=== PATIENT | female | born 1990 | race Caucasian/White ===

== ENCOUNTER 2017-08-01 09:04 | Outpatient (CLI) | payer OTHER | END 2017-08-01 11:04 | disposition home or self-care (01) | LOC: ECT 09:04 | DX: F31.4 Bipolar disorder, current episode depressed, severe, without psychotic features (principal); F90.9 Attention-deficit hyperactivity disorder, unspecified type; Z91.5 Personal history of self-harm ==

== ENCOUNTER 2017-08-30 05:09 | Outpatient (RCR) | payer OTHER ==
[~2017-08-30] VITALS: Ht 147.3 cm; Wt 44.0 kg
[2017-08-30] MEDS ORDERED: SUMAtriptan 6mg/0.5ml Inj SUBQ ONE ×3 (05:10→08:34)
[2017-08-30] MEDS ORDERED: Midazolam 2mg/2ml Inj ONE ×2 (05:10)
[2017-08-30] MEDS ORDERED: Excedrin Migraine tab ONE ×3 (05:10→08:34)
[2017-08-30] MEDS ORDERED: Methohexital Sodium Syr 100mg/10ml IVP ONE ×3 (05:10→08:34)
[2017-08-30] MEDS ORDERED: Succinylcholine 20mg/ml 10ml vial ONE ×3 (05:10→08:34)
[2017-08-30] MEDS ORDERED: NS 500ML ONE ×3 (05:10→08:34)
[2017-08-30] MEDS ORDERED: Albuterol 90mcg Inhaler 8gm INH ONE (07:35)
[2017-08-30 08:00] VITALS: BP 105/59
[2017-08-30 08:13] VITALS: BP 105/59
[2017-08-30] MEDS ORDERED: Excedrin Migraine tab ORAL PRN (08:34)
[2017-08-30] MEDS ORDERED: Sodium Chloride 500ML 500 ML IV ONE (08:34)
[2017-08-30 08:35] VITALS: BP 115/65
[2017-08-30 08:40] VITALS: BP 111/65
[2017-08-30 08:45] VITALS: BP 99/51
[2017-08-30 08:50] VITALS: BP 99/48
[2017-09-02] MEDS ORDERED: Midazolam 2mg/2ml Inj ONE (07:00)
[2017-09-02] MEDS ORDERED: Methohexital Sodium Syr 100mg/10ml IVP ONE (07:00)
[2017-09-02] MEDS ORDERED: Excedrin Migraine tab ONE (07:00)
[2017-09-02] MEDS ORDERED: Succinylcholine 20mg/ml 10ml vial ONE (07:00)
[2017-09-02] MEDS ORDERED: SUMAtriptan 6mg/0.5ml Inj SUBQ ONE (07:00)
[2017-09-02] MEDS ORDERED: Ketorolac 60mg Inj ONE (07:00)
[2017-09-02] MEDS ORDERED: NS 500ML ONE (07:00)
[2017-09-02 07:59] VITALS: BP 109/67
[2017-09-02 08:18] VITALS: BP 112/57
[2017-09-02] MEDS ORDERED: Atropine Sulfate 0.4mg/ml inj IVP PRN (08:18)
[2017-09-02] MEDS ORDERED: Excedrin Migraine tab ORAL PRN (08:18)
[2017-09-02] MEDS ORDERED: Sodium Chloride 500ML 500 ML IV ONE (08:18)
[2017-09-02 08:23] VITALS: BP 111/55
[2017-09-02 08:28] VITALS: BP 108/53
[2017-09-02 08:33] VITALS: BP 109/53
[2017-09-04] MEDS ORDERED: Succinylcholine 20mg/ml 10ml vial ONE (07:00)
[2017-09-04] MEDS ORDERED: Excedrin Migraine tab ONE (07:00)
[2017-09-04] MEDS ORDERED: SUMAtriptan 6mg/0.5ml Inj SUBQ ONE (07:00)
[2017-09-04] MEDS ORDERED: Ketorolac 60mg Inj ONE (07:00)
[2017-09-04] MEDS ORDERED: Methohexital Sodium Syr 100mg/10ml IVP ONE (07:00)
[2017-09-04] MEDS ORDERED: Midazolam 2mg/2ml Inj ONE (07:00)
[2017-09-04] MEDS ORDERED: NS 500ML ONE (07:00)
[2017-09-04 07:55] VITALS: BP 105/71
[2017-09-04] MEDS ORDERED: Sodium Chloride 500ML 500 ML IV ONE (08:18)
[2017-09-04] MEDS ORDERED: Excedrin Migraine tab ORAL PRN (08:18)
[2017-09-04] MEDS ORDERED: Atropine Sulfate 0.4mg/ml inj IVP PRN (08:18)
[2017-09-04 08:20] VITALS: BP 102/55
[2017-09-04 08:25] VITALS: BP 101/54
[2017-09-04 08:30] VITALS: BP 103/56
[2017-09-04 08:35] VITALS: BP 101/55
[2017-09-06] MEDS ORDERED: Excedrin Migraine tab ONE (08:00)
[2017-09-06] MEDS ORDERED: NS 500ML ONE (08:00)
[2017-09-06] MEDS ORDERED: Methohexital Sodium Syr 100mg/10ml IVP ONE (08:00)
[2017-09-06] MEDS ORDERED: Ketorolac 60mg Inj ONE (08:00)
[2017-09-06] MEDS ORDERED: Midazolam 2mg/2ml Inj ONE (08:00)
[2017-09-06] MEDS ORDERED: Succinylcholine 20mg/ml 10ml vial ONE (08:00)
[2017-09-06] MEDS ORDERED: SUMAtriptan 6mg/0.5ml Inj SUBQ ONE (08:00)
[2017-09-06 08:49] VITALS: BP 109/70
[2017-09-06] MEDS ORDERED: Sodium Chloride 500ML 500 ML IV ONE (09:03)
[2017-09-06] MEDS ORDERED: Excedrin Migraine tab ORAL PRN (09:03)
[2017-09-06 09:05] VITALS: BP 98/53
[2017-09-06 09:10] VITALS: BP 105/58
[2017-09-06 09:15] VITALS: BP 100/56
[2017-09-06 09:20] VITALS: BP 103/56
[2017-09-09 10:23] VITALS: BP 101/61
[2017-09-09] MEDS ORDERED: Excedrin Migraine tab ORAL PRN (10:41)
[2017-09-09] MEDS ORDERED: Methohexital Sodium Syr 100mg/10ml IVP ONE (10:41)
[2017-09-09] MEDS ORDERED: Midazolam 2mg/2ml Inj ONE (10:41)
[2017-09-09] MEDS ORDERED: Sodium Chloride 500ML 500 ML IV ONE (10:41)
[2017-09-09] MEDS ORDERED: Succinylcholine 20mg/ml 10ml vial ONE (10:41)
[2017-09-09] MEDS ORDERED: Ketorolac 60mg Inj ONE (10:41)
[2017-09-09] MEDS ORDERED: SUMAtriptan 6mg/0.5ml Inj SUBQ ONE (10:41)
[2017-09-09] MEDS ORDERED: NS 500ML ONE (10:41)
[2017-09-09] MEDS ORDERED: Excedrin Migraine tab ONE (10:41)
[2017-09-09 10:45] VITALS: BP 109/59
[2017-09-09 10:50] VITALS: BP 108/54
[2017-09-09 10:55] VITALS: BP 104/53
[2017-09-09 11:00] VITALS: BP 106/50
[2017-09-09 11:05] VITALS: BP 101/51
[2017-09-11 07:51] VITALS: BP 107/71
[2017-09-11] MEDS ORDERED: Excedrin Migraine tab ORAL PRN (08:07)
[2017-09-11] MEDS ORDERED: Sodium Chloride 500ML 500 ML IV ONE (08:07)
[2017-09-11 08:10] VITALS: BP 128/68
[2017-09-11 08:15] VITALS: BP 137/68
[2017-09-11 08:21] VITALS: BP 99/44
[2017-09-11 08:25] VITALS: BP 110/60
[2017-09-13] MEDS ORDERED: Succinylcholine 20mg/ml 10ml vial ONE (08:00)
[2017-09-13] MEDS ORDERED: SUMAtriptan 6mg/0.5ml Inj SUBQ ONE (08:00)
[2017-09-13] MEDS ORDERED: Excedrin Migraine tab ONE (08:00)
[2017-09-13] MEDS ORDERED: NS 500ML ONE (08:00)
[2017-09-13] MEDS ORDERED: Midazolam 2mg/2ml Inj ONE (08:00)
[2017-09-13] MEDS ORDERED: Methohexital Sodium Syr 100mg/10ml IVP ONE (08:00)
[2017-09-13] MEDS ORDERED: Ketorolac 60mg Inj ONE (08:00)
[2017-09-13 08:30] VITALS: BP 107/72
[2017-09-13] MEDS ORDERED: Sodium Chloride 500ML 500 ML IV ONE (08:46)
[2017-09-13] MEDS ORDERED: Excedrin Migraine tab ORAL PRN (08:46)
[2017-09-13 08:50] VITALS: BP 97/41
[2017-09-13 08:55] VITALS: BP 99/42
[2017-09-13 09:00] VITALS: BP 90/42
[2017-09-13 09:05] VITALS: BP 100/46
[2017-09-16 10:22] VITALS: BP 98/65
[2017-09-16] MEDS ORDERED: Excedrin Migraine tab ORAL PRN (10:34)
[2017-09-16] MEDS ORDERED: Sodium Chloride 500ML 500 ML IV ONE (10:34)
[2017-09-16 10:35] VITALS: BP 89/47
[2017-09-16 10:40] VITALS: BP 110/63
[2017-09-16 10:45] VITALS: BP 101/42
[2017-09-16 10:50] VITALS: BP 102/51
[2017-09-18] MEDS ORDERED: Ketorolac 60mg Inj ONE (07:00)
[2017-09-18] MEDS ORDERED: NS 500ML ONE (07:00)
[2017-09-18] MEDS ORDERED: Midazolam 2mg/2ml Inj ONE (07:00)
[2017-09-18] MEDS ORDERED: Excedrin Migraine tab ONE (07:00)
[2017-09-18] MEDS ORDERED: Methohexital Sodium Syr 100mg/10ml IVP ONE (07:00)
[2017-09-18] MEDS ORDERED: Succinylcholine 20mg/ml 10ml vial ONE (07:00)
[2017-09-18] MEDS ORDERED: SUMAtriptan 6mg/0.5ml Inj SUBQ ONE (07:00)
[2017-09-18 09:47] VITALS: BP 98/63
[2017-09-18 10:06] VITALS: BP 110/45
[2017-09-18] MEDS ORDERED: Excedrin Migraine tab ORAL PRN (10:06)
[2017-09-18] MEDS ORDERED: Sodium Chloride 500ML 500 ML IV ONE (10:06)
[2017-09-18 10:11] VITALS: BP 100/50
[2017-09-18 10:16] VITALS: BP 93/40
[2017-09-18 10:21] VITALS: BP 95/40
[2017-09-23] MEDS ORDERED: Methohexital Sodium Syr 100mg/10ml IVP ONE (06:00)
[2017-09-23] MEDS ORDERED: SUMAtriptan 6mg/0.5ml Inj SUBQ ONE (06:00)
[2017-09-23] MEDS ORDERED: Excedrin Migraine tab ONE (06:00)
[2017-09-23] MEDS ORDERED: Succinylcholine 20mg/ml 10ml vial ONE (06:00)
[2017-09-23] MEDS ORDERED: Midazolam 2mg/2ml Inj ONE (06:00)
[2017-09-25] MEDS ORDERED: Midazolam 2mg/2ml Inj ONE (08:00)
[2017-09-25] MEDS ORDERED: Methohexital Sodium Syr 100mg/10ml IVP ONE (08:00)
[2017-09-25] MEDS ORDERED: Ketorolac 60mg Inj ONE (08:00)
[2017-09-25] MEDS ORDERED: SUMAtriptan 6mg/0.5ml Inj SUBQ ONE (08:00)
[2017-09-25] MEDS ORDERED: NS 500ML ONE (08:00)
[2017-09-25] MEDS ORDERED: Excedrin Migraine tab ONE (08:00)
[2017-09-25 09:26] VITALS: BP 106/64
[2017-09-25] MEDS ORDERED: Excedrin Migraine tab ORAL PRN (09:38)
[2017-09-25] MEDS ORDERED: Sodium Chloride 500ML 500 ML IV ONE (09:38)
[2017-09-25 09:40] VITALS: BP 106/44
[2017-09-25 09:45] VITALS: BP 98/52
[2017-09-25 09:50] VITALS: BP 98/47
[2017-09-25 09:55] VITALS: BP 109/65
== END 2017-09-25 | disposition home or self-care (01) ==
LOC: ECT 05:09
DX: F31.4 Bipolar disorder, current episode depressed, severe, without psychotic features (principal)
CPT/HCPCS: 90870; J0330; J2250; J3030; J3360; J7040

== ENCOUNTER 2017-09-30 06:07 | Outpatient (RCR) | payer OTHER ==
[~2017-09-30] VITALS: Ht 147.3 cm; Wt 44.0 kg
[2017-09-30] MEDS ORDERED: Succinylcholine 20mg/ml 10ml vial ONE (06:08)
[2017-09-30] MEDS ORDERED: Ketorolac 60mg Inj ONE (06:08)
[2017-09-30] MEDS ORDERED: Excedrin Migraine tab ONE (06:08)
[2017-09-30] MEDS ORDERED: NS 500ML ONE (06:08)
[2017-09-30] MEDS ORDERED: Midazolam 2mg/2ml Inj ONE (06:08)
[2017-09-30] MEDS ORDERED: Methohexital Sodium Syr 100mg/10ml IVP ONE (06:08)
[2017-09-30] MEDS ORDERED: SUMAtriptan 6mg/0.5ml Inj SUBQ ONE (06:08)
[2017-09-30 09:42] VITALS: BP 105/75
[2017-09-30] MEDS ORDERED: Sodium Chloride 500ML 500 ML IV ONE (10:03)
[2017-09-30] MEDS ORDERED: Excedrin Migraine tab ORAL PRN (10:03)
[2017-09-30 10:05] VITALS: BP 101/48
[2017-09-30 10:10] VITALS: BP 98/49
[2017-09-30 10:15] VITALS: BP 100/45
[2017-09-30 10:20] VITALS: BP 98/50
[2017-09-30 10:25] VITALS: BP 106/50
[2017-10-07] MEDS ORDERED: NS 500ML ONE (06:00)
[2017-10-07] MEDS ORDERED: SUMAtriptan 6mg/0.5ml Inj SUBQ ONE (06:00)
[2017-10-07] MEDS ORDERED: Excedrin Migraine tab ONE (06:00)
[2017-10-07] MEDS ORDERED: Methohexital Sodium Syr 100mg/10ml IVP ONE (06:00)
[2017-10-07] MEDS ORDERED: Succinylcholine 20mg/ml 10ml vial ONE (06:00)
[2017-10-07] MEDS ORDERED: Midazolam 2mg/2ml Inj ONE (06:00)
[2017-10-07] MEDS ORDERED: Ketorolac 60mg Inj ONE (06:00)
[2017-10-07 08:48] VITALS: BP 103/68
[2017-10-07] MEDS ORDERED: Sodium Chloride 500ML 500 ML IV ONE (09:07)
[2017-10-07] MEDS ORDERED: Excedrin Migraine tab ORAL PRN (09:07)
[2017-10-07 09:10] VITALS: BP 133/50
[2017-10-07 09:15] VITALS: BP 126/47
[2017-10-07 09:20] VITALS: BP 110/52
[2017-10-07 09:25] VITALS: BP 116/62
[2017-10-14] MEDS ORDERED: SUMAtriptan 6mg/0.5ml Inj SUBQ ONE (06:00)
[2017-10-14] MEDS ORDERED: Midazolam 2mg/2ml Inj ONE (06:00)
[2017-10-14] MEDS ORDERED: Succinylcholine 20mg/ml 10ml vial ONE (06:00)
[2017-10-14] MEDS ORDERED: Excedrin Migraine tab ONE (06:00)
[2017-10-14] MEDS ORDERED: Ketorolac 60mg Inj ONE (06:00)
[2017-10-14] MEDS ORDERED: Methohexital Sodium Syr 100mg/10ml IVP ONE (06:00)
[2017-10-14] MEDS ORDERED: NS 500ML ONE (06:00)
[2017-10-14 09:51] VITALS: BP 105/69
[2017-10-14] MEDS ORDERED: Excedrin Migraine tab ORAL PRN (10:07)
[2017-10-14] MEDS ORDERED: Sodium Chloride 500ML 500 ML IV ONE (10:07)
[2017-10-14 10:10] VITALS: BP 99/56
[2017-10-14 10:15] VITALS: BP 98/55
[2017-10-14 10:20] VITALS: BP 98/55
[2017-10-14 10:25] VITALS: BP 101/61
[2017-10-23] MEDS ORDERED: Midazolam 2mg/2ml Inj ONE (08:00)
[2017-10-23] MEDS ORDERED: Methohexital Sodium Syr 100mg/10ml IVP ONE (08:00)
[2017-10-23] MEDS ORDERED: NS 500ML ONE (08:00)
[2017-10-23] MEDS ORDERED: Excedrin Migraine tab ONE (08:00)
[2017-10-23] MEDS ORDERED: SUMAtriptan 6mg/0.5ml Inj SUBQ ONE (08:00)
[2017-10-23] MEDS ORDERED: Succinylcholine 20mg/ml 10ml vial ONE (08:00)
[2017-10-23] MEDS ORDERED: Ketorolac 60mg Inj ONE (08:00)
[2017-10-23 09:34] VITALS: BP 104/71
[2017-10-23] MEDS ORDERED: Sodium Chloride 500ML 500 ML IV ONE (09:58)
[2017-10-23] MEDS ORDERED: Excedrin Migraine tab ORAL PRN (09:58)
[2017-10-23 10:00] VITALS: BP 101/51
[2017-10-23 10:05] VITALS: BP 101/41
[2017-10-23 10:10] VITALS: BP 99/43
[2017-10-23 10:15] VITALS: BP 100/47
== END 2017-10-23 | disposition home or self-care (01) ==
LOC: ECT 06:07
DX: F31.4 Bipolar disorder, current episode depressed, severe, without psychotic features (principal)
CPT/HCPCS: 90870; J0330; J2250; J3030; J7040

== ENCOUNTER 2017-11-11 07:28 | Outpatient (RCR) | payer OTHER ==
[~2017-11-11] VITALS: Ht 30.5 cm; Wt 0.5 kg
[2017-11-11] MEDS ORDERED: Succinylcholine 20mg/ml 10ml vial ONE (07:29)
[2017-11-11] MEDS ORDERED: Ketorolac 60mg Inj ONE (07:29)
[2017-11-11] MEDS ORDERED: Methohexital Sodium Syr 100mg/10ml IVP ONE (07:29)
[2017-11-11] MEDS ORDERED: NS 500ML ONE (07:29)
[2017-11-11] MEDS ORDERED: SUMAtriptan 6mg/0.5ml Inj SUBQ ONE (07:29)
[2017-11-11] MEDS ORDERED: Midazolam 2mg/2ml Inj ONE (07:29)
[2017-11-11] MEDS ORDERED: Excedrin Migraine tab ONE (07:29)
[2017-11-11 08:21] VITALS: BP 107/73
[2017-11-11] MEDS ORDERED: Sodium Chloride 500ML 500 ML IV ONE (08:36)
[2017-11-11] MEDS ORDERED: Excedrin Migraine tab ORAL PRN (08:36)
[2017-11-11 08:40] VITALS: BP 96/52
[2017-11-11 08:45] VITALS: BP 92/48
[2017-11-11 08:50] VITALS: BP 107/54
[2017-11-11 08:55] VITALS: BP 114/52
[2017-11-11 09:40] VITALS: BP 107/55
[2017-11-20] MEDS ORDERED: Ketorolac 60mg Inj ONE (08:00)
[2017-11-20] MEDS ORDERED: Succinylcholine 20mg/ml 10ml vial ONE (08:00)
[2017-11-20] MEDS ORDERED: Excedrin Migraine tab ONE (08:00)
[2017-11-20] MEDS ORDERED: NS 500ML ONE (08:00)
[2017-11-20] MEDS ORDERED: Midazolam 2mg/2ml Inj ONE (08:00)
[2017-11-20] MEDS ORDERED: SUMAtriptan 6mg/0.5ml Inj SUBQ ONE (08:00)
[2017-11-20] MEDS ORDERED: Methohexital Sodium Syr 100mg/10ml IVP ONE (08:00)
[2017-11-20 10:11] VITALS: BP 110/67
[2017-11-20 10:35] VITALS: BP 90/46
[2017-11-20] MEDS ORDERED: Excedrin Migraine tab ORAL PRN (10:35)
[2017-11-20] MEDS ORDERED: Sodium Chloride 500ML 500 ML IV ONE (10:35)
[2017-11-20 10:40] VITALS: BP 92/46
[2017-11-20 10:45] VITALS: BP 92/44
[2017-11-20 10:50] VITALS: BP 98/52
== END 2017-11-23 | disposition home or self-care (01) ==
LOC: ECT 07:28
DX: F31.4 Bipolar disorder, current episode depressed, severe, without psychotic features (principal)
CPT/HCPCS: 90870; J0330; J2250; J3030; J7040

== ENCOUNTER 2017-11-25 06:24 | Outpatient (RCR) | payer OTHER ==
[~2017-11-25] VITALS: Ht 147.3 cm; Wt 44.0 kg
[2017-11-25] MEDS ORDERED: Midazolam 2mg/2ml Inj ONE ×2 (06:25)
[2017-11-25] MEDS ORDERED: Ketorolac 60mg Inj ONE ×2 (06:25)
[2017-11-25] MEDS ORDERED: Succinylcholine 20mg/ml 10ml vial ONE ×2 (06:25)
[2017-11-25] MEDS ORDERED: Methohexital Sodium Syr 100mg/10ml IVP ONE ×2 (06:25)
[2017-11-25] MEDS ORDERED: NS 500ML ONE ×2 (06:25)
[2017-11-25] MEDS ORDERED: Excedrin Migraine tab ONE ×2 (06:25)
[2017-11-25] MEDS ORDERED: SUMAtriptan 6mg/0.5ml Inj SUBQ ONE ×2 (06:25)
[2017-11-25 08:29] VITALS: BP 114/77
[2017-11-25] MEDS ORDERED: Sodium Chloride 500ML 500 ML IV ONE (08:49)
[2017-11-25] MEDS ORDERED: Excedrin Migraine tab ORAL PRN (08:49)
[2017-11-25 08:50] VITALS: BP 111/57
[2017-11-25 08:55] VITALS: BP 107/50
[2017-11-25 09:00] VITALS: BP 104/54
[2017-11-25 09:05] VITALS: BP 108/46
[2017-11-29] MEDS ORDERED: Excedrin Migraine tab ONE (07:00)
[2017-11-29] MEDS ORDERED: Methohexital Sodium Syr 100mg/10ml IVP ONE (07:00)
[2017-11-29] MEDS ORDERED: NS 500ML ONE (07:00)
[2017-11-29] MEDS ORDERED: Midazolam 2mg/2ml Inj ONE (07:00)
[2017-11-29] MEDS ORDERED: Succinylcholine 20mg/ml 10ml vial ONE (07:00)
[2017-11-29] MEDS ORDERED: Ketorolac 60mg Inj ONE (07:00)
[2017-11-29] MEDS ORDERED: SUMAtriptan 6mg/0.5ml Inj SUBQ ONE (07:00)
[2017-11-29 08:21] VITALS: BP 108/75
[2017-11-29] MEDS ORDERED: Excedrin Migraine tab ORAL PRN (08:43)
[2017-11-29] MEDS ORDERED: Sodium Chloride 500ML 500 ML IV ONE (08:43)
[2017-11-29 08:45] VITALS: BP 108/46
[2017-11-29 08:50] VITALS: BP 102/46
[2017-11-29 08:55] VITALS: BP 108/61
[2017-11-29 09:00] VITALS: BP 103/51
[2017-12-02 09:39] VITALS: BP 109/71
[2017-12-02 10:00] VITALS: BP 100/46
[2017-12-02] MEDS ORDERED: Sodium Chloride 500ML 500 ML IV ONE (10:00)
[2017-12-02] MEDS ORDERED: Excedrin Migraine tab ORAL PRN (10:00)
[2017-12-02 10:05] VITALS: BP 95/42
[2017-12-02 10:10] VITALS: BP 104/51
[2017-12-02 10:15] VITALS: BP 113/53
[2017-12-06] MEDS ORDERED: SUMAtriptan 6mg/0.5ml Inj SUBQ ONE (07:00)
[2017-12-06] MEDS ORDERED: Methohexital Sodium Syr 100mg/10ml IVP ONE (07:00)
[2017-12-06] MEDS ORDERED: Ketorolac 60mg Inj ONE (07:00)
[2017-12-06] MEDS ORDERED: Succinylcholine 20mg/ml 10ml vial ONE (07:00)
[2017-12-06] MEDS ORDERED: Midazolam 2mg/2ml Inj ONE (07:00)
[2017-12-06] MEDS ORDERED: Excedrin Migraine tab ONE (07:00)
[2017-12-06] MEDS ORDERED: NS 500ML ONE (07:00)
[2017-12-06 08:01] VITALS: BP 114/75
[2017-12-06] MEDS ORDERED: Sodium Chloride 500ML 500 ML IV ONE (08:19)
[2017-12-06] MEDS ORDERED: Excedrin Migraine tab ORAL PRN (08:19)
[2017-12-06 08:20] VITALS: BP 113/62
[2017-12-06 08:25] VITALS: BP 108/54
[2017-12-06 08:30] VITALS: BP 105/52
[2017-12-06 08:35] VITALS: BP 111/63
[2017-12-13 08:06] VITALS: BP 107/73
[2017-12-13 08:28] VITALS: BP 104/54
[2017-12-13] MEDS ORDERED: Excedrin Migraine tab ORAL PRN (08:28)
[2017-12-13] MEDS ORDERED: Atropine Sulfate 0.4mg/ml inj IVP PRN (08:28)
[2017-12-13] MEDS ORDERED: Sodium Chloride 500ML 500 ML IV ONE (08:28)
[2017-12-13 08:33] VITALS: BP 105/58
[2017-12-13 08:38] VITALS: BP 106/59
[2017-12-13 08:43] VITALS: BP 109/51
[2017-12-16 07:37] VITALS: BP 102/67
[2017-12-16] MEDS ORDERED: Sodium Chloride 500ML 500 ML IV ONE (07:54)
[2017-12-16 07:55] VITALS: BP 111/61
[2017-12-16 08:00] VITALS: BP 108/60
[2017-12-16] MEDS ORDERED: SUMAtriptan 6mg/0.5ml Inj SUBQ ONE (08:00)
[2017-12-16] MEDS ORDERED: NS 500ML ONE (08:00)
[2017-12-16] MEDS ORDERED: Excedrin Migraine tab ONE (08:00)
[2017-12-16] MEDS ORDERED: Ketorolac 60mg Inj ONE (08:00)
[2017-12-16] MEDS ORDERED: Succinylcholine 20mg/ml 10ml vial ONE (08:00)
[2017-12-16] MEDS ORDERED: Methohexital Sodium Syr 100mg/10ml IVP ONE (08:00)
[2017-12-16] MEDS ORDERED: Midazolam 2mg/2ml Inj ONE (08:00)
[2017-12-16 08:05] VITALS: BP 114/66
[2017-12-16 08:10] VITALS: BP 109/65
[2017-12-16] MEDS ORDERED: Excedrin Migraine tab ORAL PRN (15:30)
[2017-12-18] MEDS ORDERED: Methohexital Sodium Syr 100mg/10ml IVP ONE (08:00)
[2017-12-18] MEDS ORDERED: SUMAtriptan 6mg/0.5ml Inj SUBQ ONE (08:00)
[2017-12-18] MEDS ORDERED: Excedrin Migraine tab ONE (08:00)
[2017-12-18] MEDS ORDERED: Succinylcholine 20mg/ml 10ml vial ONE (08:00)
[2017-12-18] MEDS ORDERED: NS 500ML ONE (08:00)
[2017-12-18] MEDS ORDERED: Ketorolac 60mg Inj ONE (08:00)
[2017-12-18] MEDS ORDERED: Midazolam 2mg/2ml Inj ONE (08:00)
[2017-12-18] MEDS ORDERED: Sodium Chloride 500ML 500 ML IV ONE (08:31)
[2017-12-18] MEDS ORDERED: Excedrin Migraine tab ORAL PRN (08:31)
[2017-12-18 08:35] VITALS: BP 106/45
[2017-12-18 08:40] VITALS: BP 101/45
[2017-12-18 08:45] VITALS: BP 97/45
[2017-12-18 08:50] VITALS: BP 105/39
[2017-12-18 08:55] VITALS: BP 102/50
[2017-12-20] MEDS ORDERED: Midazolam 2mg/2ml Inj ONE (07:00)
[2017-12-20] MEDS ORDERED: NS 500ML ONE (07:00)
[2017-12-20] MEDS ORDERED: Ketorolac 60mg Inj ONE (07:00)
[2017-12-20] MEDS ORDERED: Excedrin Migraine tab ONE (07:00)
[2017-12-20] MEDS ORDERED: SUMAtriptan 6mg/0.5ml Inj SUBQ ONE (07:00)
[2017-12-20] MEDS ORDERED: Methohexital Sodium Syr 100mg/10ml IVP ONE (07:00)
[2017-12-20] MEDS ORDERED: Succinylcholine 20mg/ml 10ml vial ONE (07:00)
[2017-12-20 08:20] VITALS: BP 109/70
[2017-12-20] MEDS ORDERED: Excedrin Migraine tab ORAL PRN (08:35)
[2017-12-20] MEDS ORDERED: Sodium Chloride 500ML 500 ML IV ONE (08:35)
[2017-12-20 08:40] VITALS: BP 109/70
[2017-12-20 08:45] VITALS: BP 123/66
[2017-12-20 08:50] VITALS: BP 116/64
[2017-12-20 08:55] VITALS: BP 105/51
== END 2017-12-23 | disposition home or self-care (01) ==
LOC: ECT 06:24
DX: F31.4 Bipolar disorder, current episode depressed, severe, without psychotic features (principal)
CPT/HCPCS: 90870; J0330; J2250; J3030; J7040

== ENCOUNTER 2017-12-25 09:27 | Outpatient (RCR) | payer OTHER ==
[~2017-12-25] VITALS: Ht 147.3 cm; Wt 44.0 kg
[2017-12-25] MEDS ORDERED: Ketorolac 60mg Inj ONE ×2 (09:28)
[2017-12-25] MEDS ORDERED: Methohexital Sodium Syr 100mg/10ml IVP ONE ×2 (09:28)
[2017-12-25] MEDS ORDERED: SUMAtriptan 6mg/0.5ml Inj SUBQ ONE ×2 (09:28)
[2017-12-25] MEDS ORDERED: Succinylcholine 20mg/ml 10ml vial ONE ×2 (09:28)
[2017-12-25] MEDS ORDERED: Excedrin Migraine tab ONE ×2 (09:28)
[2017-12-25] MEDS ORDERED: NS 500ML ONE ×2 (09:28)
[2017-12-25] MEDS ORDERED: Midazolam 2mg/2ml Inj ONE ×2 (09:28)
[2017-12-26] MEDS ORDERED: Excedrin Migraine tab ORAL PRN (08:30)
[2017-12-26] MEDS ORDERED: Sodium Chloride 500ML 500 ML IV ONE (08:30)
[2017-12-27] MEDS ORDERED: Succinylcholine 20mg/ml 10ml vial ONE (07:00)
[2017-12-27] MEDS ORDERED: NS 500ML ONE (07:00)
[2017-12-27] MEDS ORDERED: SUMAtriptan 6mg/0.5ml Inj SUBQ ONE (07:00)
[2017-12-27] MEDS ORDERED: Midazolam 2mg/2ml Inj ONE (07:00)
[2017-12-27] MEDS ORDERED: Ketorolac 60mg Inj ONE (07:00)
[2017-12-27] MEDS ORDERED: Excedrin Migraine tab ONE (07:00)
[2017-12-27] MEDS ORDERED: Methohexital Sodium Syr 100mg/10ml IVP ONE (07:00)
[2017-12-27 09:12] VITALS: BP 104/60
[2017-12-27] MEDS ORDERED: Excedrin Migraine tab ORAL PRN (09:29)
[2017-12-27] MEDS ORDERED: Sodium Chloride 500ML 500 ML IV ONE (09:29)
[2017-12-27 09:30] VITALS: BP 119/42
[2017-12-27 09:35] VITALS: BP 117/56
[2017-12-27 09:40] VITALS: BP 111/50
[2017-12-27 09:45] VITALS: BP 108/48
[2018-01-01 09:17] VITALS: BP 101/60
[2018-01-01] MEDS ORDERED: Excedrin Migraine tab ORAL PRN (09:36)
[2018-01-01] MEDS ORDERED: Sodium Chloride 500ML 500 ML IV ONE (09:36)
[2018-01-01 09:40] VITALS: BP 128/76
[2018-01-01 09:45] VITALS: BP 129/47
[2018-01-01 09:50] VITALS: BP 118/62
[2018-01-01 09:55] VITALS: BP 105/51
[2018-01-08] MEDS ORDERED: Ketorolac 60mg Inj ONE (07:00)
[2018-01-08] MEDS ORDERED: Excedrin Migraine tab ONE (07:00)
[2018-01-08] MEDS ORDERED: Midazolam 2mg/2ml Inj ONE (07:00)
[2018-01-08] MEDS ORDERED: Methohexital Sodium Syr 100mg/10ml IVP ONE (07:00)
[2018-01-08] MEDS ORDERED: SUMAtriptan 6mg/0.5ml Inj SUBQ ONE (07:00)
[2018-01-08] MEDS ORDERED: Succinylcholine 20mg/ml 10ml vial ONE (07:00)
[2018-01-08] MEDS ORDERED: NS 500ML ONE (07:00)
[2018-01-08 08:50] VITALS: BP 101/58
[2018-01-08] MEDS ORDERED: Sodium Chloride 500ML 500 ML IV ONE (09:13)
[2018-01-08] MEDS ORDERED: Atropine Sulfate 0.4mg/ml inj IVP PRN (09:13)
[2018-01-08 09:15] VITALS: BP 102/52
[2018-01-08 09:20] VITALS: BP 107/38
[2018-01-08 09:25] VITALS: BP 107/39
[2018-01-08 09:30] VITALS: BP 103/49
[2018-01-22] MEDS ORDERED: Succinylcholine 20mg/ml 10ml vial ONE (07:00)
[2018-01-22] MEDS ORDERED: Midazolam 2mg/2ml Inj ONE (07:00)
[2018-01-22] MEDS ORDERED: NS 500ML ONE (07:00)
[2018-01-22] MEDS ORDERED: Ketorolac 60mg Inj ONE (07:00)
[2018-01-22] MEDS ORDERED: SUMAtriptan 6mg/0.5ml Inj SUBQ ONE (07:00)
[2018-01-22] MEDS ORDERED: Excedrin Migraine tab ONE (07:00)
[2018-01-22] MEDS ORDERED: Methohexital Sodium Syr 100mg/10ml IVP ONE (07:00)
[2018-01-22 08:03] VITALS: BP 106/59
[2018-01-22 08:18] VITALS: BP 111/56
[2018-01-22] MEDS ORDERED: Sodium Chloride 500ML 500 ML IV ONE (08:18)
[2018-01-22] MEDS ORDERED: Excedrin Migraine tab ORAL PRN (08:18)
[2018-01-22 08:23] VITALS: BP 106/58
[2018-01-22 08:28] VITALS: BP 111/62
[2018-01-22 08:33] VITALS: BP 103/56
== END 2018-01-23 | disposition home or self-care (01) ==
LOC: ECT 09:27
DX: F31.4 Bipolar disorder, current episode depressed, severe, without psychotic features (principal)
CPT/HCPCS: 90870; J0330; J2250; J3030; J7040

== ENCOUNTER 2018-02-05 06:55 | Outpatient (RCR) | payer OTHER ==
[~2018-02-05] VITALS: Ht 147.3 cm; Wt 44.0 kg
[2018-02-05] MEDS ORDERED: SUMAtriptan 6mg/0.5ml Inj SUBQ ONE (06:56)
[2018-02-05] MEDS ORDERED: Succinylcholine 20mg/ml 10ml vial ONE (06:56)
[2018-02-05] MEDS ORDERED: Ketorolac 60mg Inj ONE (06:56)
[2018-02-05] MEDS ORDERED: Excedrin Migraine tab ONE (06:56)
[2018-02-05] MEDS ORDERED: Methohexital Sodium Syr 100mg/10ml IVP ONE (06:56)
[2018-02-05] MEDS ORDERED: Midazolam 2mg/2ml Inj ONE (06:56)
[2018-02-05] MEDS ORDERED: NS 500ML ONE (06:56)
[2018-02-05 08:05] VITALS: BP 120/79
[2018-02-05 08:20] VITALS: BP 104/73
[2018-02-05 08:25] VITALS: BP 100/51
[2018-02-05 08:35] VITALS: BP 120/79
[2018-02-05] MEDS ORDERED: Atropine Sulfate 0.4mg/ml inj IVP PRN (14:45)
[2018-02-05] MEDS ORDERED: Excedrin Migraine tab ORAL PRN (14:45)
== END 2018-02-22 | disposition home or self-care (01) ==
LOC: ECT 06:55
DX: F31.4 Bipolar disorder, current episode depressed, severe, without psychotic features (principal)
CPT/HCPCS: 90870; J0330; J2250; J3030; J7040

== ENCOUNTER 2018-02-24 05:19 | Outpatient (RCR) | payer OTHER ==
[~2018-02-24] VITALS: Ht 147.3 cm; Wt 44.0 kg
[2018-02-24] MEDS ORDERED: Excedrin Migraine tab ONE (05:20)
[2018-02-24] MEDS ORDERED: Succinylcholine 20mg/ml 10ml vial ONE (05:20)
[2018-02-24] MEDS ORDERED: SUMAtriptan 6mg/0.5ml Inj SUBQ ONE (05:20)
[2018-02-24] MEDS ORDERED: Midazolam 2mg/2ml Inj ONE (05:20)
[2018-02-24] MEDS ORDERED: NS 500ML ONE (05:20)
[2018-02-24] MEDS ORDERED: Ketorolac 60mg Inj ONE (05:20)
[2018-02-24] MEDS ORDERED: Methohexital Sodium Syr 100mg/10ml IVP ONE (05:20)
[2018-02-24 08:40] VITALS: BP 124/85
[2018-02-24] MEDS ORDERED: Excedrin Migraine tab ORAL PRN (08:58)
[2018-02-24] MEDS ORDERED: Sodium Chloride 500ML 500 ML IV ONE (08:58)
[2018-02-24 09:00] VITALS: BP 103/54
[2018-02-24 09:05] VITALS: BP 99/58
[2018-02-24 09:10] VITALS: BP 102/54
[2018-02-24 09:15] VITALS: BP 118/58
[2018-03-17] MEDS ORDERED: NS 500ML ONE (07:00)
[2018-03-17] MEDS ORDERED: Methohexital Sodium Syr 100mg/10ml IVP ONE (07:00)
[2018-03-17] MEDS ORDERED: Excedrin Migraine tab ONE (07:00)
[2018-03-17] MEDS ORDERED: SUMAtriptan 6mg/0.5ml Inj SUBQ ONE (07:00)
[2018-03-17] MEDS ORDERED: Succinylcholine 20mg/ml 10ml vial ONE (07:00)
[2018-03-17] MEDS ORDERED: Ketorolac 60mg Inj ONE (07:00)
[2018-03-17] MEDS ORDERED: Midazolam 2mg/2ml Inj ONE (07:00)
[2018-03-17 07:42] VITALS: BP 109/67
[2018-03-17] MEDS ORDERED: Atropine Sulfate 0.4mg/ml inj IVP PRN (08:08)
[2018-03-17] MEDS ORDERED: Sodium Chloride 500ML 500 ML IV ONE (08:08)
[2018-03-17 08:10] VITALS: BP 105/45
[2018-03-17 08:15] VITALS: BP 101/48
[2018-03-17 08:20] VITALS: BP 100/46
[2018-03-17 08:25] VITALS: BP 101/50
== END 2018-03-25 | disposition home or self-care (01) ==
LOC: ECT 05:19
DX: F31.4 Bipolar disorder, current episode depressed, severe, without psychotic features (principal)
CPT/HCPCS: 90870; J0330; J2250; J3030; J7040

== ENCOUNTER 2018-04-09 06:21 | Outpatient (RCR) | payer OTHER ==
[~2018-04-09] VITALS: Ht 147.3 cm; Wt 44.0 kg
[2018-04-09] MEDS ORDERED: Methohexital Sodium Syr 100mg/10ml IVP ONE (06:22)
[2018-04-09] MEDS ORDERED: Ketorolac 60mg Inj IM ONE (06:22)
[2018-04-09] MEDS ORDERED: Excedrin Migraine tab ONE (06:22)
[2018-04-09] MEDS ORDERED: Succinylcholine 20mg/ml 10ml vial ONE (06:22)
[2018-04-09] MEDS ORDERED: SUMAtriptan 6mg/0.5ml Inj SUBQ ONE (06:22)
[2018-04-09] MEDS ORDERED: Midazolam 2mg/2ml Inj ONE (06:22)
[2018-04-09] MEDS ORDERED: NS 500ML ONE (06:22)
[2018-04-09 08:05] VITALS: BP 105/70
[2018-04-09] MEDS ORDERED: Sodium Chloride 500ML 500 ML IV ONE (08:23)
[2018-04-09] MEDS ORDERED: Excedrin Migraine tab ORAL PRN (08:23)
[2018-04-09 08:25] VITALS: BP 110/74
[2018-04-09 08:30] VITALS: BP 112/64
[2018-04-09 08:35] VITALS: BP 112/72
[2018-04-09 08:40] VITALS: BP 109/65
[2018-04-23] MEDS ORDERED: NS 500ML ONE (06:00)
[2018-04-23] MEDS ORDERED: SUMAtriptan 6mg/0.5ml Inj SUBQ ONE (06:00)
[2018-04-23] MEDS ORDERED: Succinylcholine 20mg/ml 10ml vial ONE (06:00)
[2018-04-23] MEDS ORDERED: Midazolam 2mg/2ml Inj ONE (06:00)
[2018-04-23] MEDS ORDERED: Excedrin Migraine tab ONE (06:00)
[2018-04-23] MEDS ORDERED: Ketorolac 60mg Inj IM ONE (06:00)
[2018-04-23 10:28] VITALS: BP 108/69
[2018-04-23 10:40] VITALS: BP 134/70
[2018-04-23] MEDS ORDERED: Sodium Chloride 500ML 500 ML IV ONE (10:44)
[2018-04-23] MEDS ORDERED: Excedrin Migraine tab ORAL PRN (10:44)
[2018-04-23 10:50] VITALS: BP 124/73
[2018-04-23 10:55] VITALS: BP 112/68
[2018-04-23 11:00] VITALS: BP 111/62
== END 2018-04-25 | disposition home or self-care (01) ==
LOC: ECT 06:21
DX: F31.4 Bipolar disorder, current episode depressed, severe, without psychotic features (principal)
CPT/HCPCS: 90870; J0330; J2250; J3030; J7040

== ENCOUNTER 2018-05-02 06:39 | Outpatient (RCR) | payer OTHER ==
[~2018-05-02] VITALS: Ht 147.3 cm; Wt 44.0 kg
[2018-05-02] MEDS ORDERED: Methohexital Sodium Syr 100mg/10ml IVP ONE (06:40)
[2018-05-02] MEDS ORDERED: NS 500ML ONE (06:40)
[2018-05-02] MEDS ORDERED: SUMAtriptan 6mg/0.5ml Inj SUBQ ONE (06:40)
[2018-05-02] MEDS ORDERED: Midazolam 2mg/2ml Inj ONE (06:40)
[2018-05-02] MEDS ORDERED: Ketorolac 60mg Inj IM ONE (06:40)
[2018-05-02] MEDS ORDERED: Excedrin Migraine tab ONE (06:40)
[2018-05-02] MEDS ORDERED: Succinylcholine 20mg/ml 10ml vial ONE (06:40)
[2018-05-02 08:45] VITALS: BP 112/76
[2018-05-02] MEDS ORDERED: Sodium Chloride 500ML 500 ML IV ONE (08:59)
[2018-05-02] MEDS ORDERED: Excedrin Migraine tab ORAL PRN (08:59)
[2018-05-02 09:00] VITALS: BP 109/51
[2018-05-02 09:05] VITALS: BP 102/52
[2018-05-02 09:10] VITALS: BP 102/58
[2018-05-02 09:15] VITALS: BP 109/46
[2018-05-19] VITALS (8 sets, daily range): BP systolic 94–117; BP diastolic 41–69
[2018-05-19] MEDS ORDERED: NS 500ML ONE (07:00)
[2018-05-19] MEDS ORDERED: Midazolam 2mg/2ml Inj ONE (07:00)
[2018-05-19] MEDS ORDERED: Succinylcholine 20mg/ml 10ml vial ONE (07:00)
[2018-05-19] MEDS ORDERED: SUMAtriptan 6mg/0.5ml Inj SUBQ ONE (07:00)
[2018-05-19] MEDS ORDERED: Excedrin Migraine tab ONE (07:00)
[2018-05-19] MEDS ORDERED: Methohexital Sodium Syr 100mg/10ml IVP ONE (07:00)
[2018-05-19] MEDS ORDERED: Ketorolac 60mg Inj IM ONE (07:00)
[2018-05-19] MEDS ORDERED: Excedrin Migraine tab ORAL ONE (08:00)
[2018-05-19] MEDS ORDERED: Sodium Chloride 500ML 500 ML IV ONE (08:00)
[2018-05-21] MEDS ORDERED: Excedrin Migraine tab ONE (07:00)
[2018-05-21] MEDS ORDERED: Midazolam 2mg/2ml Inj ONE (07:00)
[2018-05-21] MEDS ORDERED: Ketorolac 60mg Inj IM ONE (07:00)
[2018-05-21] MEDS ORDERED: Succinylcholine 20mg/ml 10ml vial ONE (07:00)
[2018-05-21] MEDS ORDERED: SUMAtriptan 6mg/0.5ml Inj SUBQ ONE (07:00)
[2018-05-21] MEDS ORDERED: NS 500ML ONE (07:00)
[2018-05-21] MEDS ORDERED: Methohexital Sodium Syr 100mg/10ml IVP ONE (07:00)
[2018-05-21 07:34] VITALS: BP 117/71
[2018-05-21] MEDS ORDERED: Sodium Chloride 500ML 500 ML IV ONE (07:50)
[2018-05-21] MEDS ORDERED: Excedrin Migraine tab ORAL PRN (07:50)
[2018-05-21 07:55] VITALS: BP 108/68
[2018-05-21 08:00] VITALS: BP 112/60
[2018-05-21 08:05] VITALS: BP 108/62
[2018-05-21 08:10] VITALS: BP 110/61
[2018-05-23] MEDS ORDERED: SUMAtriptan 6mg/0.5ml Inj SUBQ ONE (06:00)
[2018-05-23] MEDS ORDERED: Midazolam 2mg/2ml Inj ONE (06:00)
[2018-05-23] MEDS ORDERED: NS 500ML ONE (06:00)
[2018-05-23] MEDS ORDERED: Ketorolac 60mg Inj IM ONE (06:00)
[2018-05-23] MEDS ORDERED: Succinylcholine 20mg/ml 10ml vial ONE (06:00)
[2018-05-23] MEDS ORDERED: Methohexital Sodium Syr 100mg/10ml IVP ONE (06:00)
[2018-05-23] MEDS ORDERED: Excedrin Migraine tab ONE (06:00)
[2018-05-23 07:28] VITALS: BP 103/71
[2018-05-23] MEDS ORDERED: Sodium Chloride 500ML 500 ML IV ONE (07:49)
[2018-05-23] MEDS ORDERED: Excedrin Migraine tab ORAL PRN (07:49)
[2018-05-23 07:50] VITALS: BP 115/60
[2018-05-23 07:55] VITALS: BP 107/47
[2018-05-23 08:00] VITALS: BP 108/57
[2018-05-23 08:05] VITALS: BP 105/55
== END 2018-05-25 | disposition home or self-care (01) ==
LOC: ECT 06:39
DX: F31.4 Bipolar disorder, current episode depressed, severe, without psychotic features (principal)
CPT/HCPCS: 90870; J0330; J2250; J3030; J7040

== ENCOUNTER 2018-05-28 04:39 | Outpatient (RCR) | payer OTHER ==
[~2018-05-28] VITALS: Ht 147.3 cm; Wt 44.0 kg
[2018-05-28] MEDS ORDERED: Excedrin tab (non formulary) ONE (04:40)
[2018-05-28] MEDS ORDERED: Methohexital Sodium Syr 100mg/10ml IVP ONE ×2 (04:40)
[2018-05-28] MEDS ORDERED: Excedrin Migraine tab ONE ×2 (04:40)
[2018-05-28] MEDS ORDERED: Ketorolac 60mg Inj IM ONE ×3 (04:40)
[2018-05-28] MEDS ORDERED: NS 500ML ONE ×3 (04:40)
[2018-05-28] MEDS ORDERED: Methohexital Sodium 500mg Vial IVP ONE (04:40)
[2018-05-28] MEDS ORDERED: Midazolam 2mg/2ml Inj ONE ×3 (04:40)
[2018-05-28] MEDS ORDERED: SUMAtriptan 6mg/0.5ml Inj SUBQ ONE ×3 (04:40)
[2018-05-28] MEDS ORDERED: Succinylcholine 20mg/ml 10ml vial ONE ×2 (04:40)
[2018-05-28 07:09] VITALS: BP 102/72
[2018-05-28] MEDS ORDERED: Excedrin Migraine tab ORAL PRN (07:30)
[2018-05-28] MEDS ORDERED: Sodium Chloride 500ML 500 ML IV ONE (07:30)
[2018-05-28 07:35] VITALS: BP 112/66
[2018-05-28 07:40] VITALS: BP 106/61
[2018-05-28 07:45] VITALS: BP 102/50
[2018-05-28 07:50] VITALS: BP 102/50
[2018-05-30 08:14] VITALS: BP 108/69
[2018-05-30] MEDS ORDERED: Excedrin Migraine tab ORAL PRN (08:32)
[2018-05-30] MEDS ORDERED: Sodium Chloride 500ML 500 ML IV ONE (08:32)
[2018-05-30 08:35] VITALS: BP 112/40
[2018-05-30 08:40] VITALS: BP 102/50
[2018-05-30 08:45] VITALS: BP 107/53
[2018-05-30 08:50] VITALS: BP 104/55
[2018-06-06 07:57] VITALS: BP 109/78
[2018-06-06] MEDS ORDERED: Ketorolac 60mg Inj IM ONE (08:00)
[2018-06-06] MEDS ORDERED: NS 500ML ONE (08:00)
[2018-06-06] MEDS ORDERED: Excedrin Migraine tab ONE (08:00)
[2018-06-06] MEDS ORDERED: Succinylcholine 20mg/ml 10ml vial ONE (08:00)
[2018-06-06] MEDS ORDERED: Midazolam 2mg/2ml Inj ONE (08:00)
[2018-06-06] MEDS ORDERED: Methohexital Sodium Syr 100mg/10ml IVP ONE (08:00)
[2018-06-06] MEDS ORDERED: SUMAtriptan 6mg/0.5ml Inj SUBQ ONE (08:00)
[2018-06-06] MEDS ORDERED: Sodium Chloride 500ML 500 ML IV ONE (08:13)
[2018-06-06] MEDS ORDERED: Excedrin Migraine tab ORAL PRN (08:13)
[2018-06-06 08:15] VITALS: BP 117/59
[2018-06-06 08:20] VITALS: BP 113/59
[2018-06-06 08:25] VITALS: BP 119/72
[2018-06-06 08:30] VITALS: BP 124/75
[2018-06-11] MEDS ORDERED: Excedrin Migraine tab ONE (06:00)
[2018-06-11] MEDS ORDERED: SUMAtriptan 6mg/0.5ml Inj SUBQ ONE (06:00)
[2018-06-11] MEDS ORDERED: Ketorolac 60mg Inj IM ONE (06:00)
[2018-06-11] MEDS ORDERED: Succinylcholine 20mg/ml 10ml vial ONE (06:00)
[2018-06-11] MEDS ORDERED: Midazolam 2mg/2ml Inj ONE (06:00)
[2018-06-11] MEDS ORDERED: NS 500ML ONE (06:00)
[2018-06-11] MEDS ORDERED: Methohexital Sodium Syr 100mg/10ml IVP ONE (06:00)
[2018-06-11 10:57] VITALS: BP 120/69
[2018-06-11] MEDS ORDERED: Sodium Chloride 500ML 500 ML IV ONE (11:17)
[2018-06-11] MEDS ORDERED: Excedrin Migraine tab ORAL PRN (11:17)
[2018-06-11 11:20] VITALS: BP 134/73
[2018-06-11 11:25] VITALS: BP 124/74
[2018-06-11 11:30] VITALS: BP 124/78
[2018-06-11 11:35] VITALS: BP 126/67
[2018-06-13] MEDS ORDERED: Excedrin Migraine tab ONE (06:00)
[2018-06-13] MEDS ORDERED: Ketorolac 60mg Inj IM ONE (06:00)
[2018-06-13] MEDS ORDERED: SUMAtriptan 6mg/0.5ml Inj SUBQ ONE (06:00)
[2018-06-13] MEDS ORDERED: NS 500ML ONE (06:00)
[2018-06-13] MEDS ORDERED: Succinylcholine 20mg/ml 10ml vial ONE (06:00)
[2018-06-13] MEDS ORDERED: Midazolam 2mg/2ml Inj ONE (06:00)
[2018-06-13] MEDS ORDERED: Methohexital Sodium Syr 100mg/10ml IVP ONE (06:00)
[2018-06-13 09:00] VITALS: BP 112/66
[2018-06-13] MEDS ORDERED: Sodium Chloride 500ML 500 ML IV ONE (09:17)
[2018-06-13] MEDS ORDERED: Excedrin Migraine tab ORAL PRN (09:17)
[2018-06-13 09:20] VITALS: BP 122/65
[2018-06-13 09:25] VITALS: BP 122/71
[2018-06-13 09:30] VITALS: BP 113/65
[2018-06-16] MEDS ORDERED: Succinylcholine 20mg/ml 10ml vial ONE ×2 (08:00)
[2018-06-16] MEDS ORDERED: Methohexital Sodium Syr 100mg/10ml IVP ONE ×2 (08:00)
[2018-06-16] MEDS ORDERED: NS 500ML ONE ×2 (08:00)
[2018-06-16] MEDS ORDERED: Midazolam 2mg/2ml Inj ONE ×2 (08:00)
[2018-06-16] MEDS ORDERED: Ketorolac 60mg Inj IM ONE ×2 (08:00)
[2018-06-16] MEDS ORDERED: Excedrin Migraine tab ONE ×2 (08:00)
[2018-06-16] MEDS ORDERED: SUMAtriptan 6mg/0.5ml Inj SUBQ ONE ×2 (08:00)
[2018-06-16 08:56] VITALS: BP 127/81
[2018-06-16 09:15] VITALS: BP 132/76
[2018-06-16 09:20] VITALS: BP 127/73
[2018-06-16] MEDS ORDERED: Excedrin Migraine tab ORAL PRN (09:21)
[2018-06-16] MEDS ORDERED: Sodium Chloride 500ML 500 ML IV ONE (09:21)
[2018-06-16 09:25] VITALS: BP 123/50
[2018-06-16 09:30] VITALS: BP 115/78
[2018-06-18 08:25] VITALS: BP 113/65
[2018-06-18] MEDS ORDERED: Excedrin Migraine tab ORAL PRN (08:42)
[2018-06-18] MEDS ORDERED: Sodium Chloride 500ML 500 ML IV ONE (08:42)
[2018-06-18 08:45] VITALS: BP 138/71
[2018-06-18 08:50] VITALS: BP 116/48
[2018-06-18 08:55] VITALS: BP 121/75
[2018-06-18 09:00] VITALS: BP 126/60
[2018-06-20 09:04] VITALS: BP 102/68
[2018-06-20] MEDS ORDERED: Excedrin Migraine tab ORAL PRN (09:23)
[2018-06-20] MEDS ORDERED: Sodium Chloride 500ML 500 ML IV ONE (09:23)
[2018-06-20 09:25] VITALS: BP 123/68
[2018-06-20 09:30] VITALS: BP 127/99
[2018-06-20 09:45] VITALS: BP 103/45
[2018-06-23] MEDS ORDERED: NS 500ML ONE (07:00)
[2018-06-23] MEDS ORDERED: SUMAtriptan 6mg/0.5ml Inj SUBQ ONE (07:00)
[2018-06-23] MEDS ORDERED: Ketorolac 60mg Inj IM ONE (07:00)
[2018-06-23] MEDS ORDERED: Methohexital Sodium Syr 100mg/10ml IVP ONE (07:00)
[2018-06-23] MEDS ORDERED: Midazolam 2mg/2ml Inj ONE (07:00)
[2018-06-23] MEDS ORDERED: Excedrin Migraine tab ONE (07:00)
[2018-06-23] MEDS ORDERED: Succinylcholine 20mg/ml 10ml vial ONE (07:00)
[2018-06-23 09:14] VITALS: BP 108/71
[2018-06-23] MEDS ORDERED: Excedrin Migraine tab ORAL PRN (09:33)
[2018-06-23] MEDS ORDERED: Atropine Sulfate 0.4mg/ml inj IVP PRN (09:33)
[2018-06-23] MEDS ORDERED: Sodium Chloride 500ML 500 ML IV ONE (09:33)
[2018-06-23 09:35] VITALS: BP 121/53
[2018-06-23 09:40] VITALS: BP 111/50
[2018-06-23 09:45] VITALS: BP 119/78
[2018-06-23 09:50] VITALS: BP 123/76
[2018-06-25] MEDS ORDERED: Sodium Chloride 500ML 500 ML IV ONE (09:27)
[2018-06-25] MEDS ORDERED: Atropine Sulfate 0.4mg/ml inj IVP PRN (09:27)
[2018-06-25] MEDS ORDERED: Excedrin Migraine tab ORAL PRN (09:27)
[2018-06-25 09:30] VITALS: BP_SYST 114; BP_SYST 115; BP_DIAS 55; BP_DIAS 63
[2018-06-25 09:35] VITALS: BP 118/63
[2018-06-25 09:40] VITALS: BP 115/69
[2018-06-25 09:45] VITALS: BP 114/59
[2018-06-25] MEDS ORDERED: Succinylcholine 20mg/ml 10ml vial ONE (13:09)
[2018-06-25] MEDS ORDERED: Ketorolac 60mg Inj IM ONE (13:09)
[2018-06-25] MEDS ORDERED: SUMAtriptan 6mg/0.5ml Inj SUBQ ONE (13:09)
[2018-06-25] MEDS ORDERED: Excedrin Migraine tab ONE (13:09)
[2018-06-25] MEDS ORDERED: NS 500ML ONE (13:09)
[2018-06-25] MEDS ORDERED: Midazolam 2mg/2ml Inj ONE (13:09)
[2018-06-25] MEDS ORDERED: Methohexital Sodium Syr 100mg/10ml IVP ONE (13:09)
== END 2018-06-25 | disposition home or self-care (01) ==
LOC: ECT 04:39
DX: F31.4 Bipolar disorder, current episode depressed, severe, without psychotic features (principal)
CPT/HCPCS: 90870; J0330; J2250; J3030; J3490; J7040

== ENCOUNTER 2018-06-27 07:14 | Outpatient (RCR) | payer OTHER ==
[~2018-06-27] VITALS: Ht 147.3 cm; Wt 44.0 kg
[2018-06-27] MEDS ORDERED: Ketorolac 60mg Inj IM ONE ×3 (07:15)
[2018-06-27] MEDS ORDERED: Succinylcholine 20mg/ml 10ml vial ONE ×3 (07:15)
[2018-06-27] MEDS ORDERED: Midazolam 2mg/2ml Inj ONE ×3 (07:15)
[2018-06-27] MEDS ORDERED: Methohexital Sodium 500mg Vial IVP ONE ×2 (07:15)
[2018-06-27] MEDS ORDERED: Excedrin Migraine tab ONE ×2 (07:15)
[2018-06-27] MEDS ORDERED: Methohexital Sodium Syr 100mg/10ml IVP ONE (07:15)
[2018-06-27] MEDS ORDERED: SUMAtriptan 6mg/0.5ml Inj SUBQ ONE ×3 (07:15)
[2018-06-27] MEDS ORDERED: Excedrin tab (non formulary) ONE (07:15)
[2018-06-27] MEDS ORDERED: NS 500ML ONE ×3 (07:15)
[2018-06-27 08:52] VITALS: BP 108/72
[2018-06-27] MEDS ORDERED: Excedrin Migraine tab ORAL PRN (09:18)
[2018-06-27] MEDS ORDERED: Sodium Chloride 500ML 500 ML IV ONE (09:18)
[2018-06-27] MEDS ORDERED: Atropine Sulfate 0.4mg/ml inj IVP PRN (09:18)
[2018-06-27 09:20] VITALS: BP 102/60
[2018-06-27 09:25] VITALS: BP 104/47
[2018-06-27 09:30] VITALS: BP 120/44
[2018-06-27 09:35] VITALS: BP 135/43
[2018-06-30 08:52] VITALS: BP 109/77
[2018-06-30] MEDS ORDERED: Sodium Chloride 500ML 500 ML IV ONE (09:10)
[2018-06-30] MEDS ORDERED: Excedrin Migraine tab ORAL PRN (09:10)
[2018-06-30 09:15] VITALS: BP 109/57
[2018-06-30 09:20] VITALS: BP_SYST 110; BP_SYST 111; BP_DIAS 50; BP_DIAS 57
[2018-06-30 09:25] VITALS: BP 111/57
[2018-06-30 09:30] VITALS: BP 111/70
[2018-07-02] MEDS ORDERED: Succinylcholine 20mg/ml 10ml vial ONE (07:00)
[2018-07-02] MEDS ORDERED: Methohexital Sodium Syr 100mg/10ml IVP ONE (07:00)
[2018-07-02] MEDS ORDERED: Ketorolac 60mg Inj IM ONE (07:00)
[2018-07-02] MEDS ORDERED: Excedrin Migraine tab ONE (07:00)
[2018-07-02] MEDS ORDERED: SUMAtriptan 6mg/0.5ml Inj SUBQ ONE (07:00)
[2018-07-02] MEDS ORDERED: Midazolam 2mg/2ml Inj ONE (07:00)
[2018-07-02] MEDS ORDERED: NS 500ML ONE (07:00)
[2018-07-02 08:58] VITALS: BP 111/82
[2018-07-02] MEDS ORDERED: Sodium Chloride 500ML 500 ML IV ONE (09:14)
[2018-07-02] MEDS ORDERED: Excedrin Migraine tab ORAL PRN (09:14)
[2018-07-02 09:15] VITALS: BP 118/69
[2018-07-02 09:20] VITALS: BP 111/68
[2018-07-02 09:25] VITALS: BP 106/67
[2018-07-02 09:28] VITALS: BP 108/58
[2018-07-07 09:34] VITALS: BP 100/71
[2018-07-07] MEDS ORDERED: Excedrin Migraine tab ORAL PRN (09:53)
[2018-07-07] MEDS ORDERED: Sodium Chloride 500ML 500 ML IV ONE (09:53)
[2018-07-07 09:55] VITALS: BP 121/77
[2018-07-07 10:00] VITALS: BP 111/62
[2018-07-07 10:05] VITALS: BP 107/43
[2018-07-07 10:10] VITALS: BP 107/50
[2018-07-16] MEDS ORDERED: Ketorolac 60mg Inj IM ONE (08:00)
[2018-07-16] MEDS ORDERED: NS 500ML ONE (08:00)
[2018-07-16] MEDS ORDERED: SUMAtriptan 6mg/0.5ml Inj SUBQ ONE (08:00)
[2018-07-16] MEDS ORDERED: Succinylcholine 20mg/ml 10ml vial ONE (08:00)
[2018-07-16] MEDS ORDERED: Midazolam 2mg/2ml Inj ONE (08:00)
[2018-07-16] MEDS ORDERED: Excedrin Migraine tab ONE (08:00)
[2018-07-16] MEDS ORDERED: Methohexital Sodium Syr 100mg/10ml IVP ONE (08:00)
[2018-07-16 08:19] VITALS: BP 107/66
[2018-07-16] MEDS ORDERED: Sodium Chloride 500ML 500 ML IV ONE (08:32)
[2018-07-16] MEDS ORDERED: Excedrin Migraine tab ORAL PRN (08:32)
[2018-07-16 08:40] VITALS: BP 109/65
[2018-07-16 08:45] VITALS: BP 110/66
[2018-07-16 08:50] VITALS: BP 115/51
[2018-07-16 08:55] VITALS: BP 108/62
[2018-07-23] MEDS ORDERED: Methohexital Sodium Syr 100mg/10ml IVP ONE (07:00)
[2018-07-23] MEDS ORDERED: SUMAtriptan 6mg/0.5ml Inj SUBQ ONE (07:00)
[2018-07-23] MEDS ORDERED: Succinylcholine 20mg/ml 10ml vial ONE (07:00)
[2018-07-23] MEDS ORDERED: Midazolam 2mg/2ml Inj ONE (07:00)
[2018-07-23] MEDS ORDERED: Ketorolac 60mg Inj IM ONE (07:00)
[2018-07-23] MEDS ORDERED: Excedrin Migraine tab ONE (07:00)
[2018-07-23 10:48] VITALS: BP 103/77
[2018-07-23] MEDS ORDERED: Excedrin Migraine tab ORAL PRN (11:05)
[2018-07-23] MEDS ORDERED: Sodium Chloride 500ML 500 ML IV ONE (11:05)
[2018-07-23 11:10] VITALS: BP 109/57
[2018-07-23 11:15] VITALS: BP 106/56
[2018-07-23 11:20] VITALS: BP 105/56
[2018-07-23 11:25] VITALS: BP 110/53
== END 2018-07-25 | disposition home or self-care (01) ==
LOC: ECT 07:14
DX: F31.4 Bipolar disorder, current episode depressed, severe, without psychotic features (principal)
CPT/HCPCS: 90870; J0330; J2250; J3030; J3490; J7040

== ENCOUNTER 2018-08-06 06:52 | Outpatient (RCR) | payer OTHER ==
[~2018-08-06] VITALS: Ht 147.3 cm; Wt 44.0 kg
[2018-08-06] MEDS ORDERED: Excedrin Migraine tab ONE (06:53)
[2018-08-06] MEDS ORDERED: Methohexital Sodium Syr 100mg/10ml IVP ONE (06:53)
[2018-08-06] MEDS ORDERED: SUMAtriptan 6mg/0.5ml Inj SUBQ ONE (06:53)
[2018-08-06] MEDS ORDERED: Midazolam 2mg/2ml Inj ONE (06:53)
[2018-08-06] MEDS ORDERED: Ketorolac 60mg Inj IM ONE (06:53)
[2018-08-06] MEDS ORDERED: NS 500ML ONE (06:53)
[2018-08-06] MEDS ORDERED: Succinylcholine 20mg/ml 10ml vial ONE (06:53)
[2018-08-06 09:55] VITALS: BP 104/74
[2018-08-06] MEDS ORDERED: Excedrin Migraine tab ORAL PRN (10:14)
[2018-08-06] MEDS ORDERED: Sodium Chloride 500ML 500 ML IV ONE (10:14)
[2018-08-06 10:15] VITALS: BP 116/64
[2018-08-06 10:20] VITALS: BP 111/58
[2018-08-06 10:25] VITALS: BP 115/62
[2018-08-06 10:30] VITALS: BP 110/72
== END 2018-08-25 | disposition home or self-care (01) ==
LOC: ECT 06:52
DX: F31.4 Bipolar disorder, current episode depressed, severe, without psychotic features (principal)
CPT/HCPCS: 90870; J0330; J2250; J3030; J7040

== ENCOUNTER 2018-08-27 05:46 | Outpatient (RCR) | payer OTHER ==
[~2018-08-27] VITALS: Ht 147.3 cm; Wt 50.3 kg
[2018-08-27] MEDS ORDERED: Midazolam 2mg/2ml Inj ONE (05:47)
[2018-08-27] MEDS ORDERED: Ketorolac 60mg Inj IM ONE (05:47)
[2018-08-27] MEDS ORDERED: NS 500ML ONE (05:47)
[2018-08-27] MEDS ORDERED: Methohexital Sodium Syr 100mg/10ml IVP ONE (05:47)
[2018-08-27] MEDS ORDERED: Excedrin Migraine tab ONE (05:47)
[2018-08-27] MEDS ORDERED: Succinylcholine 20mg/ml 10ml vial ONE (05:47)
[2018-08-27] MEDS ORDERED: SUMAtriptan 6mg/0.5ml Inj SUBQ ONE (05:47)
[2018-08-27 09:31] VITALS: BP 109/71
[2018-08-27 09:44] VITALS: BP 112/62
[2018-08-27] MEDS ORDERED: Excedrin Migraine tab ORAL PRN (09:44)
[2018-08-27 09:49] VITALS: BP 105/62
[2018-08-27 09:54] VITALS: BP 98/58
[2018-08-27 09:59] VITALS: BP 99/72
[2018-09-17] MEDS ORDERED: Excedrin Migraine tab ONE (08:00)
[2018-09-17] MEDS ORDERED: Methohexital Sodium Syr 100mg/10ml IVP ONE (08:00)
[2018-09-17] MEDS ORDERED: Ketorolac 60mg Inj IM ONE (08:00)
[2018-09-17] MEDS ORDERED: Succinylcholine 20mg/ml 10ml vial ONE (08:00)
[2018-09-17] MEDS ORDERED: SUMAtriptan 6mg/0.5ml Inj SUBQ ONE (08:00)
[2018-09-17] MEDS ORDERED: Midazolam 2mg/2ml Inj ONE (08:00)
[2018-09-17] MEDS ORDERED: NS 500ML ONE (08:00)
[2018-09-17 08:09] VITALS: BP 114/77
[2018-09-17] MEDS ORDERED: Excedrin Migraine tab ORAL PRN (08:31)
[2018-09-17 08:35] VITALS: BP 114/71
[2018-09-17 08:40] VITALS: BP 114/66
[2018-09-17 08:45] VITALS: BP 117/67
[2018-09-17 08:50] VITALS: BP 120/73
== END 2018-09-25 | disposition home or self-care (01) ==
LOC: ECT 05:46
DX: F31.4 Bipolar disorder, current episode depressed, severe, without psychotic features (principal); F90.9 Attention-deficit hyperactivity disorder, unspecified type; J45.909 Unspecified asthma, uncomplicated; E06.3 Autoimmune thyroiditis
CPT/HCPCS: 90870; J0330; J2250; J3030; J7040

== ENCOUNTER 2018-10-08 06:24 | Outpatient (RCR) | payer OTHER ==
[~2018-10-08] VITALS: Ht 30.5 cm; Wt 0.5 kg
[2018-10-08] MEDS ORDERED: Excedrin Migraine tab ONE (06:25)
[2018-10-08] MEDS ORDERED: Methohexital Sodium Syr 100mg/10ml IVP ONE (06:25)
[2018-10-08] MEDS ORDERED: Ketorolac 60mg Inj IM ONE (06:25)
[2018-10-08] MEDS ORDERED: Succinylcholine 20mg/ml 10ml vial ONE (06:25)
[2018-10-08] MEDS ORDERED: Midazolam 2mg/2ml Inj ONE (06:25)
[2018-10-08] MEDS ORDERED: NS 500ML ONE (06:25)
[2018-10-08] MEDS ORDERED: SUMAtriptan 6mg/0.5ml Inj SUBQ ONE (06:25)
[2018-10-08 09:43] VITALS: BP 116/67
[2018-10-08 10:00] VITALS: BP 119/65
[2018-10-08] MEDS ORDERED: Excedrin Migraine tab ORAL PRN (10:00)
[2018-10-08 10:05] VITALS: BP 114/59
[2018-10-08 10:10] VITALS: BP 116/68
[2018-10-08 10:15] VITALS: BP 118/61
== END 2018-10-23 | disposition home or self-care (01) ==
LOC: ECT 06:24
DX: F31.4 Bipolar disorder, current episode depressed, severe, without psychotic features (principal)
CPT/HCPCS: 90870; J0330; J2250; J3030; J7040

== ENCOUNTER 2018-10-27 10:10 | Outpatient (RCR) | payer OTHER ==
[~2018-10-27] VITALS: Ht 30.5 cm; Wt 0.5 kg
[2018-10-27] MEDS ORDERED: Ketorolac 60mg Inj IM ONE (10:11)
[2018-10-27] MEDS ORDERED: NS 500ML ONE (10:11)
[2018-10-27] MEDS ORDERED: Excedrin Migraine tab ONE (10:11)
[2018-10-27] MEDS ORDERED: Methohexital Sodium Syr 100mg/10ml IVP ONE (10:11)
[2018-10-27] MEDS ORDERED: Midazolam 2mg/2ml Inj ONE (10:11)
[2018-10-27] MEDS ORDERED: SUMAtriptan 6mg/0.5ml Inj SUBQ ONE (10:11)
[2018-10-27] MEDS ORDERED: Succinylcholine 20mg/ml 10ml vial ONE (10:11)
[2018-10-29 08:27] VITALS: BP 103/62
[2018-10-29 08:45] VITALS: BP 107/56
[2018-10-29] MEDS ORDERED: Excedrin Migraine tab ORAL PRN (08:45)
[2018-10-29 08:50] VITALS: BP 107/52
[2018-10-29 08:55] VITALS: BP 105/59
[2018-10-29 09:00] VITALS: BP 107/65
[2018-11-19] MEDS ORDERED: Ketorolac 60mg Inj IM ONE (07:00)
[2018-11-19] MEDS ORDERED: SUMAtriptan 6mg/0.5ml Inj SUBQ ONE (07:00)
[2018-11-19] MEDS ORDERED: Midazolam 2mg/2ml Inj ONE (07:00)
[2018-11-19] MEDS ORDERED: NS 500ML ONE (07:00)
[2018-11-19] MEDS ORDERED: Succinylcholine 20mg/ml 10ml vial ONE (07:00)
[2018-11-19] MEDS ORDERED: Methohexital Sodium Syr 100mg/10ml IVP ONE (07:00)
[2018-11-19] MEDS ORDERED: Excedrin Migraine tab ONE (07:00)
[2018-11-19 11:39] VITALS: BP 108/67
[2018-11-19] MEDS ORDERED: Excedrin Migraine tab ORAL PRN (11:56)
[2018-11-19 12:00] VITALS: BP 116/60
[2018-11-19 12:05] VITALS: BP 107/52
[2018-11-19 12:10] VITALS: BP 98/50
[2018-11-19 12:15] VITALS: BP 102/47
== END 2018-11-23 | disposition home or self-care (01) ==
LOC: ECT 10:10
DX: F31.4 Bipolar disorder, current episode depressed, severe, without psychotic features (principal)
CPT/HCPCS: 90870; J0330; J2250; J3030; J7040

== ENCOUNTER 2018-12-08 10:18 | Outpatient (RCR) | payer OTHER ==
[~2018-12-08] VITALS: Ht 147.3 cm; Wt 50.3 kg
[2018-12-08 09:35] VITALS: BP 102/70
[2018-12-08 09:50] VITALS: BP 101/57
[2018-12-08 09:55] VITALS: BP 102/66
[2018-12-08 10:00] VITALS: BP 113/59
[2018-12-08 10:05] VITALS: BP 114/57
[~2018-12-08 10:18] MED LIST: Excedrin Migraine tab ORAL PRN
[2018-12-08] MEDS ORDERED: Methohexital Sodium Syr 100mg/10ml IVP ONE (10:19)
[2018-12-08] MEDS ORDERED: Excedrin Migraine tab ONE (10:19)
[2018-12-08] MEDS ORDERED: Ketorolac 60mg Inj IM ONE (10:19)
[2018-12-08] MEDS ORDERED: SUMAtriptan 6mg/0.5ml Inj SUBQ ONE (10:19)
[2018-12-08] MEDS ORDERED: Midazolam 2mg/2ml Inj ONE (10:19)
[2018-12-08] MEDS ORDERED: NS 500ML ONE (10:19)
[2018-12-08] MEDS ORDERED: Succinylcholine 20mg/ml 10ml vial ONE (10:19)
== END 2018-12-23 | disposition home or self-care (01) ==
LOC: ECT 10:18
DX: F31.4 Bipolar disorder, current episode depressed, severe, without psychotic features (principal)
CPT/HCPCS: 90870; J0330; J2250; J3030; J7040

== ENCOUNTER 2018-12-29 04:43 | Outpatient (RCR) | payer OTHER ==
[~2018-12-29] VITALS: Ht 30.5 cm; Wt 0.5 kg
[2018-12-29] MEDS ORDERED: Excedrin Migraine tab ONE (04:44)
[2018-12-29] MEDS ORDERED: Methohexital Sodium Syr 100mg/10ml IVP ONE (04:44)
[2018-12-29] MEDS ORDERED: Succinylcholine 20mg/ml 10ml vial ONE (04:44)
[2018-12-29] MEDS ORDERED: SUMAtriptan 6mg/0.5ml Inj SUBQ ONE (04:44)
[2018-12-29] MEDS ORDERED: Midazolam 2mg/2ml Inj ONE (04:44)
[2018-12-29] MEDS ORDERED: NS 500ML ONE (04:44)
[2018-12-29] MEDS ORDERED: Ketorolac 60mg Inj IM ONE (04:44)
[2018-12-29 07:45] VITALS: BP 110/61
[2018-12-29] MEDS ORDERED: Excedrin Migraine tab ORAL PRN (08:03)
[2018-12-29 08:05] VITALS: BP 98/56
[2018-12-29 08:10] VITALS: BP 105/56
[2018-12-29 08:15] VITALS: BP 104/62
[2018-12-29 08:20] VITALS: BP 115/74
[2019-01-21] MEDS ORDERED: Succinylcholine 20mg/ml 10ml vial ONE (09:00)
[2019-01-21] MEDS ORDERED: Excedrin Migraine tab ONE (09:00)
[2019-01-21] MEDS ORDERED: Midazolam 2mg/2ml Inj ONE (09:00)
[2019-01-21] MEDS ORDERED: Ketorolac 60mg Inj IM ONE (09:00)
[2019-01-21] MEDS ORDERED: SUMAtriptan 6mg/0.5ml Inj SUBQ ONE (09:00)
[2019-01-21] MEDS ORDERED: Methohexital Sodium Syr 100mg/10ml IVP ONE (09:00)
[2019-01-21] MEDS ORDERED: NS 500ML ONE (09:00)
[2019-01-21 09:12] VITALS: BP 102/66
[2019-01-21] MEDS ORDERED: Excedrin Migraine tab ORAL PRN (09:26)
[2019-01-21 09:30] VITALS: BP 106/54
[2019-01-21 09:35] VITALS: BP 105/56
[2019-01-21 09:40] VITALS: BP 105/55
[2019-01-21 09:45] VITALS: BP 112/47
== END 2019-01-23 | disposition home or self-care (01) ==
LOC: ECT 04:43
DX: F31.4 Bipolar disorder, current episode depressed, severe, without psychotic features (principal)
CPT/HCPCS: 90870; J0330; J2250; J3030; J7040

== ENCOUNTER 2019-02-18 04:43 | Outpatient (RCR) | payer OTHER ==
[~2019-02-18] VITALS: Ht 30.5 cm; Wt 0.5 kg
[2019-02-18] MEDS ORDERED: Succinylcholine 20mg/ml 10ml vial ONE (04:44)
[2019-02-18] MEDS ORDERED: Esmolol 100mg/10ml Inj ONE (04:44)
[2019-02-18] MEDS ORDERED: Ketorolac 60mg Inj IM ONE (04:44)
[2019-02-18] MEDS ORDERED: Midazolam 2mg/2ml Inj ONE (04:44)
[2019-02-18] MEDS ORDERED: SUMAtriptan 6mg/0.5ml Inj SUBQ ONE (04:44)
[2019-02-18] MEDS ORDERED: Excedrin Migraine tab ONE (04:44)
[2019-02-18] MEDS ORDERED: NS 500ML ONE (04:44)
[2019-02-18 09:05] VITALS: BP 102/56
[2019-02-18] MEDS ORDERED: Excedrin Migraine tab ORAL PRN (09:19)
[2019-02-18 09:20] VITALS: BP 106/51
[2019-02-18 09:25] VITALS: BP 100/54
[2019-02-18 09:30] VITALS: BP 105/43
[2019-02-18 09:35] VITALS: BP 100/48
== END 2019-02-22 | disposition home or self-care (01) ==
LOC: ECT 04:43
DX: F31.4 Bipolar disorder, current episode depressed, severe, without psychotic features (principal)
CPT/HCPCS: 90870; J0330; J2250; J3030; J7040

== ENCOUNTER 2019-03-18 06:30 | Outpatient (RCR) | payer OTHER ==
[~2019-03-18] VITALS: Ht 30.5 cm; Wt 0.5 kg
[2019-03-18] MEDS ORDERED: SUMAtriptan 6mg/0.5ml Inj SUBQ ONE (06:31)
[2019-03-18] MEDS ORDERED: Excedrin Migraine tab ONE (06:31)
[2019-03-18] MEDS ORDERED: Succinylcholine 20mg/ml 10ml vial ONE (06:31)
[2019-03-18] MEDS ORDERED: NS 500ML ONE (06:31)
[2019-03-18] MEDS ORDERED: Ketorolac 60mg Inj IM ONE (06:31)
[2019-03-18] MEDS ORDERED: Methohexital Sodium Syr 100mg/10ml IVP ONE (06:31)
[2019-03-18] MEDS ORDERED: Midazolam 2mg/2ml Inj ONE (06:31)
[2019-03-18 08:04] VITALS: BP 113/64
[2019-03-18] MEDS ORDERED: Excedrin Migraine tab ORAL PRN (08:22)
[2019-03-18 08:23] VITALS: BP 131/79
[2019-03-18 08:28] VITALS: BP 122/65
[2019-03-18 08:33] VITALS: BP 120/69
== END 2019-03-25 | disposition home or self-care (01) ==
LOC: ECT 06:30
DX: F31.4 Bipolar disorder, current episode depressed, severe, without psychotic features (principal)
CPT/HCPCS: 90870; J0330; J2250; J3030; J7040

== ENCOUNTER 2019-04-15 04:45 | Outpatient (RCR) | payer OTHER ==
[~2019-04-15] VITALS: Ht 30.5 cm; Wt 0.5 kg
[2019-04-15] MEDS ORDERED: Ketorolac 60mg Inj IM ONE (04:46)
[2019-04-15] MEDS ORDERED: SUMAtriptan 6mg/0.5ml Inj SUBQ ONE (04:46)
[2019-04-15] MEDS ORDERED: Succinylcholine 20mg/ml 10ml vial ONE (04:46)
[2019-04-15] MEDS ORDERED: Excedrin Migraine tab ONE (04:46)
[2019-04-15] MEDS ORDERED: Midazolam 2mg/2ml Inj ONE (04:46)
[2019-04-15] MEDS ORDERED: Methohexital Sodium Syr 100mg/10ml IVP ONE (04:46)
[2019-04-15] MEDS ORDERED: NS 500ML ONE (04:46)
[2019-04-15 08:12] VITALS: BP 110/75
[2019-04-15 08:25] VITALS: BP 110/61
[2019-04-15] MEDS ORDERED: Excedrin Migraine tab ORAL PRN (08:25)
[2019-04-15 08:30] VITALS: BP 118/63
[2019-04-15 08:35] VITALS: BP 105/62
[2019-04-15 08:40] VITALS: BP 109/62
== END 2019-04-25 | disposition home or self-care (01) ==
LOC: ECT 04:45
DX: F31.4 Bipolar disorder, current episode depressed, severe, without psychotic features (principal)
CPT/HCPCS: 90870; J0330; J2250; J3030; J7040

== ENCOUNTER 2019-05-13 05:07 | Outpatient (RCR) | payer OTHER ==
[~2019-05-13] VITALS: Ht 30.5 cm; Wt 0.5 kg
[2019-05-13] MEDS ORDERED: Methohexital Sodium Syr 100mg/10ml IVP ONE (05:08)
[2019-05-13] MEDS ORDERED: SUMAtriptan 6mg/0.5ml Inj SUBQ ONE (05:08)
[2019-05-13] MEDS ORDERED: Ketorolac 60mg Inj IM ONE (05:08)
[2019-05-13] MEDS ORDERED: Midazolam 2mg/2ml Inj ONE (05:08)
[2019-05-13] MEDS ORDERED: NS 500ML ONE (05:08)
[2019-05-13] MEDS ORDERED: Succinylcholine 20mg/ml 10ml vial ONE (05:08)
[2019-05-13] MEDS ORDERED: Excedrin Migraine tab ONE (05:08)
[2019-05-13] MEDS ORDERED: Excedrin Migraine tab ORAL PRN (08:49)
[2019-05-13 08:50] VITALS: BP_SYST 102; BP_SYST 104; BP_DIAS 56; BP_DIAS 76
[2019-05-13 08:55] VITALS: BP 108/62
[2019-05-13 09:00] VITALS: BP 105/62
[2019-05-13 09:05] VITALS: BP 113/56
== END 2019-05-25 | disposition home or self-care (01) ==
LOC: ECT 05:07
DX: F31.4 Bipolar disorder, current episode depressed, severe, without psychotic features (principal)
CPT/HCPCS: 90870; J0330; J2250; J3030; J7040

== ENCOUNTER 2019-06-10 04:26 | Outpatient (RCR) | payer OTHER ==
[~2019-06-10] VITALS: Ht 30.5 cm; Wt 0.5 kg
[2019-06-10] MEDS ORDERED: Midazolam 2mg/2ml Inj ONE (04:27)
[2019-06-10] MEDS ORDERED: SUMAtriptan 6mg/0.5ml Inj SUBQ ONE (04:27)
[2019-06-10] MEDS ORDERED: Excedrin Migraine tab ONE (04:27)
[2019-06-10] MEDS ORDERED: NS 500ML ONE (04:27)
[2019-06-10] MEDS ORDERED: Methohexital Sodium Syr 100mg/10ml IVP ONE (04:27)
[2019-06-10] MEDS ORDERED: Ketorolac 60mg Inj IM ONE (04:27)
[2019-06-10] MEDS ORDERED: Succinylcholine 20mg/ml 10ml vial ONE (04:27)
[2019-06-12 09:24] VITALS: BP 108/73
[2019-06-12] MEDS ORDERED: Excedrin Migraine tab ORAL PRN (09:36)
[2019-06-12 09:40] VITALS: BP 111/46
[2019-06-12 09:45] VITALS: BP 126/85
[2019-06-12 09:50] VITALS: BP 129/88
[2019-06-12 09:55] VITALS: BP 123/72
== END 2019-06-25 | disposition home or self-care (01) ==
LOC: ECT 04:26
DX: F31.4 Bipolar disorder, current episode depressed, severe, without psychotic features (principal)
CPT/HCPCS: 90870; J0330; J2250; J3030; J7040

== ENCOUNTER 2019-07-17 06:16 | Outpatient (RCR) | payer OTHER ==
[~2019-07-17] VITALS: Ht 147.3 cm; Wt 50.3 kg
[2019-07-17] MEDS ORDERED: NS 500ML ONE (06:17)
[2019-07-17] MEDS ORDERED: Midazolam 2mg/2ml Inj ONE (06:17)
[2019-07-17] MEDS ORDERED: Succinylcholine 20mg/ml 10ml vial ONE (06:17)
[2019-07-17] MEDS ORDERED: Methohexital Sodium Syr 100mg/10ml IVP ONE (06:17)
[2019-07-17] MEDS ORDERED: SUMAtriptan 6mg/0.5ml Inj SUBQ ONE (06:17)
[2019-07-17] MEDS ORDERED: Ketorolac 30mg Inj ONE (06:17)
[2019-07-17] MEDS ORDERED: Excedrin Migraine tab ONE (06:17)
[2019-07-17 07:57] VITALS: BP 107/70
[2019-07-17 08:12] VITALS: BP 109/63
[2019-07-17] MEDS ORDERED: Excedrin Migraine tab ORAL PRN (08:12)
[2019-07-17 08:17] VITALS: BP 101/54
[2019-07-17 08:22] VITALS: BP 102/62
[2019-07-17 08:27] VITALS: BP 109/24
== END 2019-07-25 | disposition home health service (06) ==
LOC: ECT 06:16
DX: F31.4 Bipolar disorder, current episode depressed, severe, without psychotic features (principal)
CPT/HCPCS: 90870; J0330; J1885; J2250; J3030; J7040

== ENCOUNTER 2019-08-17 06:23 | Outpatient (RCR) | payer OTHER ==
[~2019-08-17] VITALS: Ht 30.5 cm; Wt 0.5 kg
[2019-08-17] MEDS ORDERED: NS 500ML ONE (06:24)
[2019-08-17] MEDS ORDERED: Ketorolac 60mg Inj IM ONE (06:24)
[2019-08-17] MEDS ORDERED: Midazolam 2mg/2ml Inj ONE (06:24)
[2019-08-17] MEDS ORDERED: Excedrin Migraine tab ONE (06:24)
[2019-08-17] MEDS ORDERED: SUMAtriptan 6mg/0.5ml Inj SUBQ ONE (06:24)
[2019-08-17] MEDS ORDERED: Methohexital Sodium 500mg Vial IVP ONE (06:24)
[2019-08-17] MEDS ORDERED: Succinylcholine 20mg/ml 10ml vial ONE (06:24)
[2019-08-17 08:06] VITALS: BP 101/61
[2019-08-17] MEDS ORDERED: Excedrin Migraine tab ORAL PRN (08:22)
[2019-08-17 08:25] VITALS: BP 99/53
[2019-08-17 08:30] VITALS: BP 103/51
[2019-08-17 08:35] VITALS: BP 103/52
[2019-08-17 08:40] VITALS: BP 107/45
== END 2019-08-25 | disposition home or self-care (01) ==
LOC: ECT 06:23
DX: F31.4 Bipolar disorder, current episode depressed, severe, without psychotic features (principal)
CPT/HCPCS: 90870; J2250; J3490

== ENCOUNTER 2019-11-02 06:00 | Outpatient (RCR) | payer OTHER ==
[~2019-11-02] VITALS: Ht 30.5 cm; Wt 0.5 kg
[2019-11-02] MEDS ORDERED: Methohexital Sodium Syr 100mg/10ml IVP ONE (06:01)
[2019-11-02] MEDS ORDERED: SUMAtriptan 6mg/0.5ml Inj SUBQ ONE (06:01)
[2019-11-02] MEDS ORDERED: NS 500ML ONE (06:01)
[2019-11-02] MEDS ORDERED: Ketorolac 60mg Inj IM ONE (06:01)
[2019-11-02] MEDS ORDERED: Succinylcholine 20mg/ml 10ml vial ONE (06:01)
[2019-11-02] MEDS ORDERED: Excedrin Migraine tab ONE (06:01)
[2019-11-02 07:53] VITALS: BP 111/72
[2019-11-02 08:02] VITALS: BP 108/57
[2019-11-02] MEDS ORDERED: Excedrin Migraine tab ORAL PRN (08:02)
[2019-11-02 08:07] VITALS: BP 107/51
[2019-11-02 08:12] VITALS: BP 106/53
[2019-11-02 08:17] VITALS: BP 90/57
== END 2019-11-24 | disposition home or self-care (01) ==
LOC: ECT 06:00
DX: F31.4 Bipolar disorder, current episode depressed, severe, without psychotic features (principal)
CPT/HCPCS: 90870; J0330; J3030; J3360; J7040

== ENCOUNTER 2019-12-14 05:28 | Outpatient (RCR) | payer OTHER ==
[~2019-12-14] VITALS: Ht 30.5 cm; Wt 0.5 kg
[2019-12-14] MEDS ORDERED: SUMAtriptan 6mg/0.5ml Inj SUBQ ONE (08:00)
[2019-12-14] MEDS ORDERED: Succinylcholine 20mg/ml 10ml vial ONE (08:00)
[2019-12-14] MEDS ORDERED: NS 500ML ONE (08:00)
[2019-12-14] MEDS ORDERED: Methohexital Sodium Syr 100mg/10ml IVP ONE (08:00)
[2019-12-14] MEDS ORDERED: Ketorolac 60mg Inj IM ONE (08:00)
[2019-12-14] MEDS ORDERED: Excedrin Migraine tab ONE (08:00)
[2019-12-14] MEDS ORDERED: Midazolam 2mg/2ml Inj ONE (08:00)
[2019-12-14 08:36] VITALS: BP 109/60
[2019-12-14 08:54] VITALS: BP 123/79
[2019-12-14] MEDS ORDERED: Excedrin Migraine tab ORAL PRN (08:54)
[2019-12-14 08:59] VITALS: BP 123/78
[2019-12-14 09:04] VITALS: BP 120/70
[2019-12-14 09:09] VITALS: BP 105/61
== END 2019-12-24 | disposition home or self-care (01) ==
LOC: ECT 05:28
DX: F31.4 Bipolar disorder, current episode depressed, severe, without psychotic features (principal)
CPT/HCPCS: 90870; J0330; J2250; J3030; J7040

== ENCOUNTER 2020-01-25 05:16 | Outpatient (RCR) | payer OTHER ==
[~2020-01-25] VITALS: Ht 147.3 cm; Wt 50.3 kg
[2020-01-25] MEDS ORDERED: Methohexital Sodium Syr 100mg/10ml IVP ONE (05:17)
[2020-01-25] MEDS ORDERED: Excedrin Migraine tab ONE (05:17)
[2020-01-25] MEDS ORDERED: NS 500ML ONE (05:17)
[2020-01-25] MEDS ORDERED: SUMAtriptan 6mg/0.5ml Inj SUBQ ONE (05:17)
[2020-01-25] MEDS ORDERED: Ketorolac 30mg Inj ONE (05:17)
[2020-01-25] MEDS ORDERED: Succinylcholine 20mg/ml 10ml vial ONE (05:17)
[2020-01-25] MEDS ORDERED: Midazolam 2mg/2ml Inj ONE (05:17)
[2020-01-25 08:09] VITALS: BP 98/62
[2020-01-25] MEDS ORDERED: Excedrin Migraine tab ORAL PRN (08:29)
[2020-01-25] MEDS ORDERED: Atropine Sulfate 0.4mg/ml inj IVP PRN (08:29)
[2020-01-25] MEDS ORDERED: Lidocaine 2% 100mg/5ml Carp IV PRN (08:29)
[2020-01-25 08:30] VITALS: BP 106/61
[2020-01-25 08:35] VITALS: BP 105/53
[2020-01-25 08:40] VITALS: BP 106/42
[2020-01-25 08:45] VITALS: BP 112/55
== END 2020-02-23 | disposition home or self-care (01) ==
LOC: ECT 05:16
DX: F31.4 Bipolar disorder, current episode depressed, severe, without psychotic features (principal)
CPT/HCPCS: 90870; J0330; J1885; J2250; J3030; J7040

== ENCOUNTER 2020-03-14 05:03 | Outpatient (RCR) | payer OTHER ==
[~2020-03-14] VITALS: Ht 30.5 cm; Wt 0.5 kg
[2020-03-14] MEDS ORDERED: SUMAtriptan 6mg/0.5ml Inj SUBQ ONE (05:04)
[2020-03-14] MEDS ORDERED: Succinylcholine 20mg/ml 10ml vial ONE (05:04)
[2020-03-14] MEDS ORDERED: Ketorolac 60mg Inj IM ONE (05:04)
[2020-03-14] MEDS ORDERED: Excedrin Migraine tab ONE (05:04)
[2020-03-14] MEDS ORDERED: NS 500ML ONE (05:04)
[2020-03-14] MEDS ORDERED: Midazolam 2mg/2ml Inj ONE (05:04)
[2020-03-14] MEDS ORDERED: Methohexital Sodium Syr 100mg/10ml IVP ONE (05:04)
[2020-03-14 08:32] VITALS: BP 105/69
[2020-03-14] MEDS ORDERED: Excedrin Migraine tab ORAL PRN (08:48)
[2020-03-14 08:50] VITALS: BP 107/61
[2020-03-14 08:55] VITALS: BP 112/62
[2020-03-14 09:00] VITALS: BP 105/56
[2020-03-14 09:05] VITALS: BP 106/55
== END 2020-03-25 | disposition home or self-care (01) ==
LOC: ECT 05:03
DX: F31.4 Bipolar disorder, current episode depressed, severe, without psychotic features (principal)
CPT/HCPCS: 90870; J0330; J2250; J3030; J7040

== ENCOUNTER 2020-05-09 04:24 | Outpatient (RCR) | payer OTHER ==
[2020-05-09] VITALS (7 sets, daily range): BP systolic 108–132; BP diastolic 44–90
[~2020-05-09] VITALS: Ht 30.5 cm; Wt 0.5 kg
[2020-05-09] MEDS ORDERED: Excedrin Migraine tab ONE (04:25)
[2020-05-09] MEDS ORDERED: SUMAtriptan 6mg/0.5ml Inj SUBQ ONE (04:25)
[2020-05-09] MEDS ORDERED: Methohexita Syr 100mg/10ml IVP ONE (04:25)
[2020-05-09] MEDS ORDERED: NS 500ML ONE (04:25)
[2020-05-09] MEDS ORDERED: Ketorolac 60mg Inj IM ONE (04:25)
[2020-05-09] MEDS ORDERED: Midazolam 2mg/2ml Inj ONE (04:25)
[2020-05-09] MEDS ORDERED: Atropine Sulfate 0.4mg/ml inj IVP PRN (09:09)
[2020-05-09] MEDS ORDERED: Excedrin Migraine tab ORAL PRN (09:09)
== END 2020-05-25 | disposition home or self-care (01) ==
LOC: ECT 04:24
DX: F31.4 Bipolar disorder, current episode depressed, severe, without psychotic features (principal)
CPT/HCPCS: 90870; J2250; J3030; J7040

== ENCOUNTER 2020-06-27 05:54 | Outpatient (RCR) | payer OTHER ==
[2020-06-27] VITALS (7 sets, daily range): BP systolic 106–121; BP diastolic 53–74
[~2020-06-27] VITALS: Ht 147.3 cm; Wt 50.3 kg
[2020-06-27] MEDS ORDERED: Ketorolac 60mg Inj IM ONE (05:55)
[2020-06-27] MEDS ORDERED: Succinylcholine 20mg/ml 10ml vial ONE (05:55)
[2020-06-27] MEDS ORDERED: NS 500ML ONE (05:55)
[2020-06-27] MEDS ORDERED: SUMAtriptan 6mg/0.5ml Inj SUBQ ONE (05:55)
[2020-06-27] MEDS ORDERED: Excedrin Migraine tab ONE (05:55)
[2020-06-27] MEDS ORDERED: Methohexita Syr 100mg/10ml IVP ONE (05:55)
[2020-06-27] MEDS ORDERED: Midazolam 2mg/2ml Inj ONE (05:55)
[2020-06-27] MEDS ORDERED: Excedrin Migraine tab ORAL PRN (10:39)
== END 2020-07-25 | disposition home or self-care (01) ==
LOC: ECT 05:54
DX: F31.4 Bipolar disorder, current episode depressed, severe, without psychotic features (principal)
CPT/HCPCS: 90870; J0330; J2250; J3030; J7040

== ENCOUNTER 2020-08-22 05:19 | Outpatient (RCR) | payer OTHER ==
[2020-06-27 11:05] VITALS: BP 120/71
== END 2020-08-25 | disposition home or self-care (01) ==
LOC: ECT 05:19
DX: Z53.9 Procedure and treatment not carried out, unspecified reason (principal)